=== PATIENT | male | born 1990 | race Caucasian/White ===

== ENCOUNTER 2023-12-29 21:27 | Emergency (ER) | payer MEDICAID, OTHER ==
[~2023-12-29] VITALS: Ht 175.3 cm; Wt 88.0 kg
[2023-12-29 21:31] VITALS: TEMP 98; O2SAT 98
[2023-12-29] MEDS: HYDROXYZINE 25MG TABLET PO ONE (23:42)
[2023-12-30 00:33] VITALS: BP 125/76; PULSE 70; RESP 18
== END 2023-12-30 00:33 | disposition home or self-care (01) ==
LOC: ER 21:27
DX: J02.9 Acute pharyngitis, unspecified (principal); F41.9 Anxiety disorder, unspecified
CPT/HCPCS: 70360; 99283